=== PATIENT | male | born 1995 | race Hispanic/Latino ===

== ENCOUNTER 2021-11-12 16:58 | Emergency (ER) | payer SELFPAY ==
--- NOTE | ~2021-11-12 | CT_ITS ---
EXAMINATION: CT abdomen pelvis wo con DATE: 11/12/2021 18:32 INDICATION: LLQ pain, nausea, vomiting, hematuria TECHNIQUE: Computed tomography (CT) of the abdomen and pelvis was performed without intravenous contr ast. Automated exposure control and iterative reconstruction technique were employed. The dose-length product was 441.90 mGy-cm. COMPARISON: None FINDINGS: Lower thorax: Enlarged, otherwise unremarkable. Liver: Normal. Biliary/Gallbladder: Gallbladder is normal. No bile duct dilation. Spleen: Enlarged, otherwise unremarkable. Pancreas: No mass or duct dilation. Adrenals:No mass. Kidneys: No mass or stone. Moderate left pelvocaliectasis and ureterectasis. GI tract: No small or large bowel dilation. Normal appendix. Mesentery/Peritoneum: No ascites, mass, or free air. Retroperitoneum: No mass. Pelvis: 4 x 7 mm stone lodged in the left UVJ. Otherwise the pelvic organs are unremarkable. Soft Tissues: Soft tissues and body wall unremarkable. Bones: No acute osseous finding. IMPRESSION: 4 x 7 mm left UVJ stone causing moderate obstructive uropathy. Hepatosplenomegaly. Reviewed, dictated and finalized at location K. IMPRESSION: 4 x 7 mm left UVJ stone causing moderate obstructive uropathy. Hepatosplenomega ly.
[2021-11-12 17:02] VITALS: BP 173/97; PULSE 89; RESP 18; TEMP 36.2; O2SAT 100
[2021-11-12 17:23] LABS: Basophils Percent Auto 0.2 % (0.2-1.2); Eosinophils Percent Auto 0.2 % (0-4.4); Hematocrit 43.1 % (42.0-52.0); Hemoglobin 14.8 g/dL (14.0-18.0); Immature Granulocyte Absolute 0.04 K/mm3 (0.00-0.031); Immature Granulocyte Percent A 0.3 % (0-0.5); Lymphocytes Absolute Auto 2.51 K/mm3 (0.9-3.2); Lymphocytes Percent Auto 19.1 % (18.3-44.2); Mean Corpuscular HGB Conc 34.3 g/dl (32-36); Mean Corpuscular Hemoglobin 29.5 pg (26-34); Mean Platelet Volume 8.6 fl (7.4-10.4); Monocytes Absolute Auto 1.2 K/mm3 (0.1-0.6); Monocytes Percent Auto 8.9 % (2.6-8.5); Neutrophils Absolute Auto 9.3 K/mm3 (1.3-6.7); Neutrophils Percent Auto 71.3 % (45.5-73.1); Platelet Count Result 294 k/mm3 (150-375); Red Blood Count 5.01 M/mm3 (4.6-6.20); Red Cell Distribution Width 11.7 % (11.5-14.5); White Blood Count 13.1 K/mm3 (4.5-10.0)
[2021-11-12 17:34] LABS: Alanine Aminotransferase 22 U/L (6-50); Albumin Level 5.1 g/dL (3.5-5.1); Alkaline Phosphatase 87 U/L (38-126); Anion Gap 10 mmol/L (8-16); Aspartate Amino Transferase 27 U/L (17-59); Bilirubin,Total 0.7 mg/dL (0.2-1.3); Blood Urea Nitrogen 12 mg/dL (9-20); Calcium 9.2 mg/dL (8.4-10.2); Carbon Dioxide 24 mmol/L (22-30); Chloride 102 mmol/L (98-107); Estimated CRCL calculation 75 ml/min; Estimated Glomerular Filt Rate > 60; Glucose 103 mg/dL (65-110); Lipase 69 U/L (23-300); Potassium 3.6 mmol/L (3.4-5.0); Sodium 136 mmol/L (137-145)
[2021-11-12 18:04] LABS: Appearance Urine Cloudy (Clear); Bilirubin Urine Negative (Negative); Color Urine Yellow (Yellow); Glucose Urine UA Negative (Negative); Ketones Urine Negative (Negative); Leukocyte Esterase Ur Negative LEU/UL (Negative); Nitrate Urine Negative (Negative); Protein Urine Negative (Negative); Urobilinogen Urine 0.2 mg/dL (<2.0); pH Urine 8.5 (5.0-9.0)
[2021-11-12 18:10] LABS: Add Urine Microscopic? YES; Blood Urine Trace-Intact (Negative)
[2021-11-12 18:13] LABS: Budding Yeast Urine Present /hpf; Mucus Urine Rare /lpf; WBC Urine 0-3 /hpf
--- NOTE | 2021-11-12 18:17 | ED.ABDPAIN ---
HPI - Abdominal Pain General Chief Complaint: Abdominal Pain <ANA Brito Last Filed: 11/12/21 19:39> Stated Complaint: abd pain <ANA Brito Last Filed: 11/12/21 19:39> Time Seen by Provider: 11/12/21 17:08 <ANA Brito Last Filed: 11/12/21 19:39> Source: personal clothing laundry aide <ANA Brito Last Filed: 11/12/21 19:39> History of Present Illness HPI narrative: 26-year-old Romanian-speaking male here for evaluation of left lower quadrant/left flank pain for the past 2 days. He states the pain was intermittent in nature at first, but is now more severe and constant. It begins in his left groin region and occasionally radiates into his left flank. He has tried Tylenol for the pain without relief. Additionally has had 2 episodes of nausea and vomiting and has been constipated for the past 4 days. He does note a history of previous similar sensation, but he never had this worked up, and it resolved on its own. He denies any hematuria, dysuria, changes in weight, fevers, blood in stool or vomit. <ANA Brito Last Filed: 11/12/21 19:39> Related Data Allergies/Adverse Reactions: Allergies Allergy/AdvReac Type Severity Reaction Status Date / Time No Known Allergies Allergy Verified 11/12/21 17:06 <ANA Brito Last Filed: 11/12/21 19:39> Review of Systems Review of Systems: Gen.: Denies fevers or chills Eyes: Denies eye pain or visual change ENT: Denies congestion Respiratory: Denies shortness of breath or cough CV: Denies chest pain or palpitations GI: Reports left lower quadrant/left flank pain, nausea, vomiting. denies burning, urgency, frequency or hematuria Musculoskeletal: Denies back pain or muscle pain Neuro: Denies numbness, tingling, weakness or focal weakness Skin: Denies rash Except as documented, all other systems reviewed and negative <Keyanna Arguello PA-C - Last Filed: 11/12/21 19:39> All systems reviewed & are unremarkable except as noted in HPI and below <Keyanna Arguello PA-C - Last Filed: 11/12/21 19:39> Exam Narrative: APPEARANCE: Well appearing, no pain in distress, well-nourished. Head: normocephalic and atraumatic. EYES: PERRLA/EOMI, conjunctivae clear NOSE: No nasal drainage EARS: External ear normal in appearance THROAT: Oropharynx is clear. Mucous membranes are moist. NECK: Supple. No adenopathy, no masses. RESPIRATORY: Airway patent, respirations nonlabored. Clear to auscultation bilaterally, no rales, rhonchi, wheezing. CARDIOVASCULAR: Regular rate and rhythm without murmurs, rubs, or gallops. ABDOMINAL: Normoactive bowel sounds. Soft, nontender, nondistended. No rebound tenderness or guarding. MUSCULOSKELETAL: Left CVA tenderness. Left lower quadrant tenderness. Extremities are warm and well-perfused. Moves all extremities well. No edema. NEURO: Normal speech. No focal neurologic deficits. SKIN: Skin is warm and dry. No rashes. PSYCHIATRIC: Normal affect/mood. <Keyanna Arguello PA-C - Last Filed: 11/12/21 19:39> Course PROGRAM ADVOCATE/PA Physician Supervision I did not see this patient but the care plan was discussed with me, labs and imaging reviewed. I agree with the documentation as above <Alvin Serrano MD - Last Filed: 11/12/21 21:28> Vital Signs Vital signs: Vital Signs Temperature 36.2 C L 11/12/21 17:02 Pulse Rate 89 11/12/21 17:02 Respiratory Rate 18 11/12/21 17:02 Blood Pressure 173/97 H 11/12/21 17:02 Pulse Oximetry 100 11/12/21 17:02 Temperature 36.2 C L 11/12/21 17:02 Pulse Rate 78 11/12/21 20:12 Respiratory Rate 20 11/12/21 20:12 Blood Pressure 129/79 11/12/21 20:12 Pulse Oximetry 98 11/12/21 20:12 <Keyanna Arguello PA-C - Last Filed: 11/12/21 19:39> Vital Signs Temperature 36.2 C L 11/12/21 17:02 Pulse Rate 89 11/12/21 17:02 Respiratory Rate 18 11/12/21 17:02 Bl
[2021-11-12] MEDS: KETOROLAC 15 MG/ML VIAL (*BKC) IV PUSH (18:48)
[2021-11-12] MEDS: ONDANSETRON INJ 4 MG/2 ML VIAL IV PUSH (18:48)
[2021-11-12 19:34] VITALS: BP 138/81; PULSE 82; RESP 17; O2SAT 97
[2021-11-12 20:12] VITALS: BP 129/79; PULSE 78; RESP 20; O2SAT 98
== END 2021-11-12 20:16 | disposition home or self-care (01) ==
PROVIDERS: Emergency Provider Emergency Medicine
DX: N13.9 Obstructive and reflux uropathy, unspecified (principal); N20.1 Calculus of ureter; R16.2 Hepatomegaly with splenomegaly, not elsewhere classified
CPT/HCPCS: 36415; 74176; 80053; 81001; 83690; 85025; 96374; 96375; 99284; J1885; J2405

== ENCOUNTER 2021-11-25 21:46 | Emergency (ER) | payer SELFPAY ==
[2021-11-25 21:54] VITALS: BP 165/90; PULSE 95; RESP 18; TEMP 37.1; O2SAT 98
--- NOTE | 2021-11-25 22:31 | ED.GENADULT ---
HPI - General Adult General Chief complaint: Unspecified Stated complaint: left side facial weakness Time Seen by Provider: 11/25/21 22:02 Source: patient Mode of arrival: ambulatory Limitations: no limitations History of Present Illness HPI narrative: Patient is a 26-year-old male complaining of left facial numbness accompanied by loss of taste that started today. Patient denies any facial droop, speech or visual disturbance, focal weakness, unsteady gait, headache, dizziness, chest pain, shortness of breath, cough, congestion, nausea, vomiting, fever or chills. Related Data Allergies Allergy/AdvReac Type Severity Reaction Status Date / Time No Known Allergies Allergy Verified 11/12/21 17:06 Review of Systems Review of Systems: All systems reviewed & are unremarkable except as noted in HPI and below Exam Const: General: cooperative, healthy appearing, comfortable, no acute distress, well developed, alert and awake; No confusion Orientation/consciousness: oriented to person, oriented to place, oriented to time, patient oriented x3 and No confusion Limitations: no limitations HENMT: Head: normal to inspection, normocephalic and atraumatic Ears: hearing grossly normal bilaterally, TM normal on the right and TM normal on the left General nose exam: Normal external nose present, Normal nares present and No nasal discharge present Face and sinus: normal facial exam Mouth: Yes Normal oral and palatal mucosa present, Yes lip normal, Yes tongue normal and Yes oropharynx normal Throat: posterior oropharynx normal, tonsils normal and uvula midline Eyes: General: appearance normal, both eyes and all related structures Pupils: Equal, round and reactive pupils present EOM: EOMs intact bilaterally Neck: Neck: normal visual inspection, full ROM, no lymphadenopathy and no meningeal signs Chest: Chest palpation & inspection: normal inspection of the chest Resp: Effort & Inspection: normal respiratory effort, able to speak in complete sentences, no respiratory distress and not tachypneic Auscultation: clear to auscultation bilaterally, no crackles, no rales, no rhonchi and no wheezes Cardio: Rate: regular rate Rhythm: regular rhythm GI: Inspection: normal to inspection GI Palp: No abdominal tenderness, Yes Soft to palpation, No Tenderness to palpation present (GI), No Guarding due to palpation present (GI), No Rigid due to palpation and No Rebound tenderness present Auscultation: normal bowel sounds : General: Yes no CVA tenderness Back/Spine/Pelvis: Back: no CVA tenderness Skin: General skin exam: normal color, no rashes or lesions noted, elasticity normal and turgor normal Neuro: General: oriented to person, oriented to place, oriented to time, patient oriented x3, tone normal, moves all extremities, Normal light touch and pain sensation, no meningeal signs, no focal motor deficits, CN's II-XI intact bilaterally and No confusion Cranial nerves: Yes Equal, round and reactive pupils present Speech: No Abnormal speech present Sensory Exam: No Sensory deficit (Neuro) Extrem: General: normal to inspection, full ROM and capillary refill normal Psych: Appearance: grossly normal and well kempt Mental Status: mental status grossly normal Speech and movement: Normal speech and movement present Affect: normal affect Attitude: cooperative Thought process: Normal thought process present Thought content: Yes Normal thought content present Insight: Good insight present (Psych) Judgement: Good judgement present (Psych) Course Vital Signs Vital signs: Vital Signs Temperature 37.1 C 11/25/21 21:54 Pulse Rate 95 11/25/21 21:54 Respiratory Rate 18 11/25/21 21:54 Blood Pressure 165/90 H 11/25/21 21:54 Pulse Oximetry 98 11/25/21 21:54 Temperature 37.1 C 11/25/21 21:54 Pulse Rate 95 11/25/21 21:54 Respiratory Rate 18 11/25/21 21:54 Blood Pressure 165/90 H 11/25/21 21:54 Pulse Oximetry 98 11/25/21 21:54
[2021-11-25] MEDS: predniSONE 20 MG TABLET 60 MG PO (22:35)
[2021-11-25 23:12] VITALS: BP 135/81; PULSE 77; RESP 16; O2SAT 100
== END 2021-11-25 23:14 | disposition home or self-care (01) ==
LOC: ANHED 23:06
PROVIDERS: Emergency Provider Emergency Medicine
DX: R20.0 Anesthesia of skin (principal)
CPT/HCPCS: 99283; J7512

== ENCOUNTER 2021-12-03 15:27 | Outpatient (CLI) | payer SELFPAY ==
--- NOTE | ~2021-12-03 | CT_ITS ---
EXAMINATION: CT abdomen pelvis wo con DATE: 12/03/2021 15:51 INDICATION: Calculus of the ureter TECHNIQUE: Computed tomography (CT) of the abdomen and pelvis was performed without intravenous contr ast. The dose-length product (DLP) was 336.39 mGy-cm. Automated exposure control and iterative recons truction technique were employed. COMPARISON: None FINDINGS: Minimal dependent atelectasis is present in the lung bases. The heart size is normal. The l iver, spleen, pancreas, gallbladder, and adrenal glands are normal. The right kidney is unremarkable. There is a 5 mm stone at the left ureterovesicular junction which causes mild left hydroureteronephr osis. No pathologically enlarged abdominal or pelvic lymph nodes are identified. The appendix is norm al. There is no free intraperitoneal gas or evidence of bowel obstruction. A moderate volume of colon ic stool is present. IMPRESSION: 1. 5 mm stone at the left ureterovesicular junction causing mild left hydroureteronephrosis. Reviewed, dictated and finalized at location F. IMPRESSION: 1. 5 mm stone at the left ureterovesicular junction causing mild left hydrouret eronephrosis.
== END 2021-12-03 15:28 ==
PROVIDERS: PCP Urology; Visit Provider Urology
DX: N20.1 Calculus of ureter (principal)
CPT/HCPCS: 74176